=== PATIENT | female | born 1955 | race African-American/Black ===

== ENCOUNTER 2018-01-26 09:25 | Emergency (ER) | payer OTHER ==
[~2018-01-26] VITALS: Ht 165.1 cm; Wt 78.7 kg
[~2018-01-26 09:25] MED LIST: CENTRUM CHEWAB1 EACH PO; DIOVAN HCT 1601 EAC1 PO; DOXYCYCLINE 10100 MG PO; FISH OIL 1,0001 EAC5 PO; FLEXERIL PO; HYDROXYZINE HCL25 M1 PO; MEDROL DOSPAK21 TAB PO; NORCO 5-325 TA1 EACH PO; PREDNISONE 20 M20 MG PO; PREDNISONE50 MG PO; VITAMIN E400 UNIT PO
[2018-01-26 09:32] VITALS: BP 169/106
[2018-01-26] MEDS ORDERED: HYDROCORTISONE3011 TOP (09:49)
== END 2018-01-26 10:05 | disposition home or self-care (01) ==
LOC: ER 09:25
DX: L25.9 Unspecified contact dermatitis, unspecified cause (principal); I10 Essential (primary) hypertension; Z88.5 Allergy status to narcotic agent; Z88.6 Allergy status to analgesic agent

== ENCOUNTER 2018-01-27 12:25 | Emergency (ER) | payer OTHER ==
[~2018-01-27] VITALS: Ht 165.1 cm; Wt 78.5 kg
[~2018-01-27 12:25] MED LIST changes: +HYDROCORTISONE3011 TOP
[2018-01-27 12:36] VITALS: BP 160/75
== END 2018-01-27 13:00 | disposition home or self-care (01) ==
LOC: ER 12:25
DX: L25.9 Unspecified contact dermatitis, unspecified cause (principal); I10 Essential (primary) hypertension; Z90.710 Acquired absence of both cervix and uterus; Z88.6 Allergy status to analgesic agent; Z88.8 Allergy status to other drugs, medicaments and biological substances; Z88.5 Allergy status to narcotic agent

== ENCOUNTER 2019-07-01 10:14 | Emergency (ER) | payer OTHER ==
[~2019-07-01] VITALS: Ht 157.5 cm; Wt 78.5 kg
[2019-07-01 11:27] LABS: EOSINOPHILS 1.7 % (0.0-3.0); HEMATOCRIT 42.4 % (37.0-47.0); HEMOGLOBIN 13.9 gm/dL (12.0-15.0); MCH 26.7 pg (26.0-34.0); MCHC 32.8 g/dL (28.0-37.0); MCV 81.5 fL (80.0-100.0); MONOCYTES 7.6 % (1.0-8.0); PLATELET COUNT 187 thou/uL (150-400); POLYS 46.7 % (36.0-66.0); WBC 4.4 thou/uL (4.0-11.0)
[2019-07-01 11:35] LABS: ANION GAP 9 mmol/L (7-16); BUN 11 mg/dL (7-18); CALCIUM 9.6 mg/dL (8.5-10.1); CHLORIDE 104 mmol/L (98-107); CO2 22 mmol/L (21-32); CREATININE 0.6 mg/dL (0.6-1.0); GLUCOSE 95 mg/dL (74-106); POTASSIUM 4.4 mmol/L (3.5-5.1); SODIUM 135 mmol/L (136-145)
[2019-07-01 11:44] LABS: TROPONIN-I <0.06 ng/mL (<0.06)
[2019-07-01 12:44] VITALS: BP 160/95
--- NOTE | 2019-07-01 14:07 | EKG ---
[facility] [place] [address] ELECTROCARDIOGRAM REPORT Name: RUDDY SMITH Room #: DEP [facility]#: [id number] Admission: 07/01/19 Attend Phys: Discharge: 07/01/19 Date of : 55 Report #: [id number] THIS REPORT FOR: cc: Sabiha Zuñiga Diane C. 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
== END 2019-07-01 12:45 | disposition home or self-care (01) ==
LOC: ER 10:14
PROVIDERS: Emergency Medicine
DX: N64.4 Mastodynia (principal); I10 Essential (primary) hypertension; F17.210 Nicotine dependence, cigarettes, uncomplicated; Z98.51 Tubal ligation status; Z90.710 Acquired absence of both cervix and uterus; Z88.6 Allergy status to analgesic agent

== ENCOUNTER 2021-01-27 02:04 | Emergency (ER) | payer OTHER ==
[~2021-01-27] VITALS: Ht 165.1 cm; Wt 74.4 kg
[2021-01-27 03:20] LABS: CALCIUM 9.5 mg/dL (8.5-10.1); CREATININE 0.6 mg/dL (0.6-1.0); POTASSIUM 4.2 mmol/L (3.5-5.1)
[2021-01-27 03:22] LABS: ABSOLUTE NEUTROPHILS 6.1 thou/uL (1.4-8.2); BASOPHILS 0.5 % (0.0-2.0); EOSINOPHILS 0.1 % (0.0-3.0); HEMATOCRIT 44.4 % (37.0-47.0); HEMOGLOBIN 14.6 gm/dL (12.0-15.0); LYMPHOCYTES 17.8 % (24.0-44.0); MCHC 32.9 g/dL (28.0-37.0); MCV 82.1 fL (80.0-100.0); MONOCYTES 3.1 % (1.0-8.0); PLATELET COUNT 188 thou/uL (150-400); POLYS 78.5 % (36.0-66.0); RBC 5.41 mil/uL (4.20-5.00); WBC 7.8 thou/uL (4.0-11.0)
[2021-01-27 03:27] LABS: ALBUMIN 3.6 g/dL (3.4-5.0); TOTAL BILIRUBIN 0.7 mg/dL (0.2-1.0); TOTAL PROTEIN 7.9 g/dL (6.4-8.2)
[2021-01-27 04:58] LABS: URINE BILIRUBIN NEGATIVE (Negative); URINE BLOOD 2+ (Negative); URINE CLARITY CLEAR; URINE COLOR YELLOW; URINE GLUCOSE-RANDOM* 1+ (Negative); URINE KETONES 2+ (Negative); URINE LEUKOCYTES-REFLEX NEGATIVE (Negative); URINE NITRITE-REFLEX NEGATIVE (Negative); URINE PROTEIN (DIPSTICK) NEGATIVE (Negative); URINE SPECIFIC GRAVITY 1.025 (1.005-1.035); URINE UROBILINOGEN 0.2 E.U./dl (0.2-1.0)
[2021-01-27] MEDS ORDERED: LEVSIN0.125 MG PO (05:14)
[2021-01-27] MEDS ORDERED: ZOFRAN ODT4 MG PO (05:14)
[2021-01-27 05:21] VITALS: BP 206/108
[2021-01-27 06:09] LABS: BACTERIA-REFLEX 1-9 Few /HPF (None Seen); CASTS None Seen /LPF (None Seen); CRYSTALS None Seen /LPF (None Seen); MUCUS 4-6 Moderate strn/LPF (None Seen); SQUAMOUS 4-10 Moderate /LPF (0-3); URINE WBC-REFLEX 0-5 Rare /HPF (0-5)
--- NOTE | 2021-01-27 07:05 | EKG ---
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 : 1955 Requested By: Dontae Mays Order Number: [id number] MD: Cristhian Barber Measurements Intervals [place] Rate: 76 P: 42 NC: 136 QRS: 77 QRSD: 86 T: 74 QT: 392 QTc: 441 Interpretive Statements Sinus rhythm Baseline wander in lead(s) I,V1,V2,V3,V6 Compared to ECG 07/01/2019 10:55:03 No significant changes Electronically Signed On 01-27-2021 7:05:05 CDT by Cristhian Barber [email or web address] <ELECTRONICALLY SIGNED> By: Cristhian Barber MD, [facility] 01/27/21704 2 0233 Cristhian Barber MD, FACC /EPI
== END 2021-01-27 05:23 | disposition home or self-care (01) ==
LOC: ER 02:04
PROVIDERS: Emergency Medicine
DX: R10.13 Epigastric pain (principal); R11.10 Vomiting, unspecified; I10 Essential (primary) hypertension; F17.210 Nicotine dependence, cigarettes, uncomplicated; Z90.710 Acquired absence of both cervix and uterus; Z79.891 Long term (current) use of opiate analgesic; Z79.899 Other long term (current) drug therapy; Z88.6 Allergy status to analgesic agent; Z88.5 Allergy status to narcotic agent; Z88.8 Allergy status to other drugs, medicaments and biological substances